=== PATIENT | female | born 2000 | race Caucasian/White ===

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

== ENCOUNTER 2023-07-10 20:17 | Emergency (ER) | payer OTHER ==
[~2023-07-10] VITALS: Ht 165.1 cm; Wt 65.3 kg
[2023-07-10] MEDS ORDERED: methylPREDNISolone sod succ 125 MG VIAL IV ONE (21:20)
[2023-07-10] MEDS ORDERED: SODIUM CHLORIDE 0.9% 1,000 ML IV ONE (21:20)
[2023-07-10] MEDS ORDERED: Metoclopramide Hydrochloride 10 MG/2 ML AMP IV ONE (21:20)
== END 2023-07-11 00:19 | disposition home or self-care (01) ==
LOC: ED 20:17
DX: O26.899 Other specified pregnancy related conditions, unspecified trimester (principal); R51.9 Headache, unspecified; R11.0 Nausea; J45.909 Unspecified asthma, uncomplicated; Z88.0 Allergy status to penicillin; Z88.8 Allergy status to other drugs, medicaments and biological substances; Z98.890 Other specified postprocedural states

== ENCOUNTER 2023-09-06 23:00 | Emergency (ER) | payer BC, OTHER ==
[~2023-09-06] VITALS: Ht 165.1 cm; Wt 72.6 kg
[2023-09-06 23:47] LABS: BILIRUBIN Negative (Negative); BLOOD 3+ (Negative); CLARITY Turbid (Clear); COLOR Red (Yellow); GLUCOSE Negative (Negative); KETONE Negative (Negative); LEUKO ESTERASE 1+ (Negative); NITRITE Negative (Negative); SPECIFIC GRAVITY >= 1.030 (1.001-1.030)
[2023-09-06 23:53] LABS: RBC 41-50 rbc/hpf (0-2)
[2023-09-06 23:54] LABS: BACTERIA TRACE
== END 2023-09-07 01:17 | disposition left against medical advice (07) ==
LOC: ED 23:00
PROVIDERS: Emergency Medicine
DX: O46.92 Antepartum hemorrhage, unspecified, second trimester (principal); Z53.29 Procedure and treatment not carried out because of patient's decision for other reasons; J45.909 Unspecified asthma, uncomplicated; Z88.0 Allergy status to penicillin; Z88.8 Allergy status to other drugs, medicaments and biological substances; Z98.890 Other specified postprocedural states; Z3A.24 24 weeks gestation of pregnancy